=== PATIENT | female | born 1970 | race Hispanic/Latino ===

== ENCOUNTER 2021-09-30 17:34 | Inpatient (IN) | payer MEDICARE, OTHER ==
[2021-09-30 20:51] LABS: Basophils # (Auto) 0.1 K/mm3 (0.0-0.1); Eosinophils # (Auto) 0.3 K/mm3 (0.0-0.4); Eosinophils % (Auto) 3.4 % (0.0-4.3); Hematocrit 36.2 % (30.3-42.9); Hemoglobin 11.9 gm/dl (10.1-14.3); Lymphocytes # (Auto) 1.2 K/mm3 (1.2-5.4); Lymphocytes % (Auto) 12.2 % (13.4-35.0); Mean Corpuscular HGB Conc 33 % (30-34); Mean Corpuscular Volume 98 fl (79-97); Monocytes # (Auto) 0.7 K/mm3 (0.0-0.8); Monocytes % (Auto) 7.1 % (0.0-7.3); Platelet Count 342 K/mm3 (140-440); Red Blood Count 3.69 M/mm3 (3.65-5.03); Red Cell Distribution Width 16.3 % (13.2-15.2)
[2021-09-30 21:13] LABS: Albumin 4.2 g/dL (3.9-5); Blood Urea Nitrogen 69 mg/dL (7-17); Calcium 10.2 mg/dL (8.4-10.2); Hemolysis Index 6
[2021-09-30 21:34] LABS: Alanine Aminotransferase < 5 units/L (7-56); BUN/Creatinine Ratio 4
[2021-09-30] MEDS ORDERED: INSULIN REGULAR, HUMAN 100 UNITS/1 ML IV ONE (22:15)
[2021-09-30] MEDS ORDERED: SODIUM BICARB 8.4% 50 MEQ/50 ML SYRINGE IV ONE (22:15)
[2021-09-30] MEDS ORDERED: CALCIUM GLUCONATE 1,000 MG in SODIUM CHLORIDE 0.9% 100 ML IV ONE (22:15)
[2021-09-30] MEDS ORDERED: DEXTROSE 50% IN WATER (25GM) 50 ML SYRINGE IV ONE (22:15)
[2021-09-30] MEDS ORDERED: ALBUTEROL 2.5 MG/3 ML NEBU IH ONE (22:16)
[2021-09-30] MEDS ORDERED: cloNIDine 0.2 MG TAB PO ONE (22:23)
[2021-09-30] MEDS ORDERED: ONDANSETRON 4 MG/2 ML INJ IV ONE (22:25)
--- NOTE | 2021-09-30 22:27 | Emergency Department Report ---
HPI - General Chief Complaint: Weakness Time Seen by Provider: 09/30/21 22:15 - HPI HPI: Room 1 Patient is a 51-year-old female present with a chief complaint of missed dialysis. The patient states she was last dialyzed 09/26/2021. Patient states she had left town to visit in [place] where she says she had a prearranged hemodialysis. The patient states when she went there for dialysis he was told that they were understaffed and they were unable to perform hemodialysis. Patient states yesterday she developed weakness, shortness of breath nausea vomiting. The patient returns to [place] this morning and now presents to the ED. The patient states her command and control specialist is a Dr. Randolph at [facility] Past Medical Hx - Past Medical History Hx Hypertension: Yes Hx Renal Disease: Yes (ESRD) Hx Headaches / Migraines: Yes - Surgical History Additional Surgical History: Left upper extremity fistula - Family History Family history: no significant - Social History Smoking Status: Never Smoker Substance Use Type: None (Denies illicit drug use) - Medications Home Medications: Home Medications Medication Instructions Recorded Confirmed Last Taken Type Amlodipine Besylate 10 mg PO DAILY 09/27/15 09/27/15 Unknown History Atorvastatin 10 mg PO QHS 09/27/15 09/27/15 Unknown History Ergocalciferol [Vitamin D2] 50,000 units PO QWEEK 09/27/15 09/27/15 Unknown History Metoprolol Tartrate 25 mg PO BID 09/27/15 09/27/15 Unknown History Spironolactone 25 mg PO BID 09/27/15 09/27/15 Unknown History Tramadol HCl 50 mg PO Q8HR PRN 09/27/15 09/27/15 Unknown History ED Review of Systems ROS: Stated complaint: DIALYSIS PT MISSED TREATMENT Other details as noted in HPI Constitutional: weakness Eyes: denies: eye pain ENT: denies: throat pain Respiratory: shortness of breath Cardiovascular: denies: chest pain Endocrine: no symptoms reported Gastrointestinal: nausea, vomiting. denies: abdominal pain Genitourinary: denies: abnormal menses Musculoskeletal: denies: back pain Neurological: denies: headache Physical Exam - Physical Exam Vital Signs: Vital Signs 09/30/21 20:18 Temperature 98.5 F Pulse Rate 92 H Respiratory 18 Rate Blood Pressure 197/118 [Right] O2 Sat by Pulse 100 Oximetry Physical Exam: GENERAL: The patient is well-developed well-nourished female lying on stretcher not appearing to be in acute distress. [] HEENT: Normocephalic. Atraumatic. Extraocular motions are intact. Patient has moist mucous membranes. NECK: Supple. Trachea midline CHEST/LUNGS: Clear to auscultation. There is no respiratory distress noted. HEART/CARDIOVASCULAR: Regular. There is no tachycardia. There is no gallop rub or murmur. ABDOMEN: Abdomen is soft, nontender. Patient has normal bowel sounds. There is no abdominal distention. SKIN: There is no rash. There is no edema. There is no diaphoresis. NEURO: The patient is awake, alert, and oriented. The patient is cooperative. The patient has no focal neurologic deficits. The patient has normal speech. GCS 15 MUSCULOSKELETAL: There is no evidence of acute injury. ED Course Vital Signs 09/30/21 20:18 Temperature 98.5 F Pulse Rate 92 H Respiratory 18 Rate Blood Pressure 197/118 [Right] O2 Sat by Pulse 100 Oximetry - Consultations Consultation #1: 09/30/21 22:26 Nephrology paged 09/30/21 22:[address] Sibley- will arrange for stat hemodialysis ED Medical Decision Making - Lab Data Result diagrams: 09/30/21 20:38 09/30/21 20:38 - EKG Data -: EKG Interpreted by Me EKG shows normal: sinus rhythm Rate: normal - EKG Data When compared to previous EKG there are: previous EKG unavailable Interpretation: nonspecific ST-T wave milad (Peaked T waves) - Radiology Data Radiology results: report reviewed (Chest x-ray), image reviewed (Chest x-ray) interpreted by me: Chest x-ray-no definite focal infiltrates, no pneumothorax, no edema [facility] [address] [place] [address] XRay Report Signed Patient: MIS LAWRENCE MR#: [id number] : 1970 Acct:[id number] Age/Sex: 51 / F ADM Date: 09/30/21 Loc: ED Attending Dr: Ordering Physician: NUNO LOVETT MD Date of Service: 09/30/21 Procedure(s): XR chest 1V ap Accession Number(s): [id number] cc: NUNO LOVETT MD Fluoro Time In Minutes: CHEST 1 VIEW INDICATION / CLINICAL INFORMATION: Missed dialysis, shortness of breath. COMPARISON: None available. FINDINGS: Heart size appears within normal limits. Mediastinal contour demonstrates no significant abnormality. Pulmonary vasculature appears within normal limits. Lungs are clear. Bones and soft tissues demonstrate no significant abnormalities. IMPRESSION: 1. No active cardiopulmonary disease. Signer Name: Kirti Napier II, MD Signed: 09/30/2021 10:49 PM Workstation Name: [id number] Transcribed By: SHEREE Dictated By: KIRTI NAPIER II, MD Electronically Authenticated By: KIRTI NAPIER II, MD Signed Date/Time: 09/30/212248 DD/ 48 - Differential Diagnosis Hyperkalemia, volume overload Critical care attestation.: If time is entered above; I have spent that time in minutes in the direct care of this critically ill patient, excluding procedure time. ED Disposition Clinical Impression: Hyperkalemia, ESRD needing dialysis, Uncontrolled hypertension Disposition: ADMITTED INPATIENT Is pt being admited?: Yes Does the pt Need Aspirin: No Condition: Serious Instructions: Hypertension (ED) Time of Disposition: 22:38 (Care transferred to hospitalist (Dr Mariscal))
--- NOTE | 2021-09-30 22:54 | XRay Report ---
CHEST 1 VIEW INDICATION / CLINICAL INFORMATION: Missed dialysis, shortness of breath. COMPARISON: None available. FINDINGS: Heart size appears within normal limits. Mediastinal contour demonstrates no significant abnormality. Pulmonary vasculature appears within normal limits. Lungs are clear. Bones and soft tissues demonstr ate no significant abnormalities. IMPRESSION: 1. No active cardiopulmonary disease. Signer Name: Taiwo James II, MD Signed: 09/30/2021 10:49 PM Workstation Name: [id number]
[2021-09-30] MEDS ORDERED: ACETAMINOPHEN 325 MG TAB PO PRN (22:55)
[2021-09-30] MEDS ORDERED: ONDANSETRON 4 MG/2 ML INJ IV PRN (22:55)
[2021-09-30] MEDS ORDERED: MORPHINE 4 MG/1 ML INJ IV PRN (22:55)
[2021-09-30] MEDS ORDERED: MAGNESIUM HYDROXIDE (MOM) ORAL LIQD UDC PO PRN (22:55)
--- NOTE | 2021-09-30 23:03 | History and Physical Report ---
History of Present Illness Date of examination: 09/30/21 Date of admission: 09/30/2021 Chief complaint: ESRD - needing dialysis History of present illness: 51-year-old -Kosovan female with known history of end-stage renal disease on dialysisMondays, Wednesdays and Fridays presents to the emergency room today requesting for dialysis. Patient was last dialyzed on 09/26/2021. She was out of town to [place] and she had had a prearranged hemodialysis in [facility] however dialysis could not be performed because the facility was understaffed. She complains of shortness of breath but denies any chest pain. She has had some mild weakness but denies any fever or chills. She denies any headache or dizziness and denies any diaphoresis. Patient follows up with a machine operator transplanter Dr. Ana Calderon. Blood pressure was quite elevated upon arrival. Work-up in the emergency room today, labs were significant for potassium of 7.9. BUN of 69 and creatinine of 16.2. Chest x-ray was unremarkable. Patient has been given insulin and glucose, Kayexalate, calcium gluconate and sodium bicarb in the ER. [facility] on-call has been notified. She will be scheduled for immediate dialysis. Past History Past Medical History: dialysis, ESRD, hypertension, migraines Past Surgical History: Other (Left upper extremity fistula) Social history: no significant social history Family history: no significant family history Medications and Allergies Allergies Allergy/AdvReac Type Severity Reaction Status Date / Time No Known Allergies Allergy Verified 09/30/21 23:03 Home Medications Medication Instructions Recorded Confirmed Last Taken Type Amlodipine Besylate 10 mg PO DAILY 09/27/15 09/27/15 Unknown History Atorvastatin 10 mg PO QHS 09/27/15 09/27/15 Unknown History Ergocalciferol [Vitamin D2] 50,000 units PO QWEEK 09/27/15 09/27/15 Unknown History Metoprolol Tartrate 25 mg PO BID 09/27/15 09/27/15 Unknown History Spironolactone 25 mg PO BID 09/27/15 09/27/15 Unknown History Tramadol HCl 50 mg PO Q8HR PRN 09/27/15 09/27/15 Unknown History Active Meds: Active Medications Acetaminophen (Acetaminophen 325 Mg Tab) 650 mg PO Q4H PRN PRN Reason: Pain MILD(1-3)/Fever >100.5/ISABEL Magnesium Hydroxide (Magnesium Hydroxide (Mom) Oral Liqd Udc) 30 ml PO Q4H PRN PRN Reason: Constipation Morphine Sulfate (Morphine 2 Mg/1 Ml Inj) 2 mg IV Q4H PRN PRN Reason: Pain, Moderate (4-6) Morphine Sulfate (Morphine 4 Mg/1 Ml Inj) 4 mg IV Q4H PRN PRN Reason: Pain , Severe (7-10) Ondansetron HCl (Ondansetron 4 Mg/2 Ml Inj) 4 mg IV Q8H PRN PRN Reason: Nausea And Vomiting Sodium Chloride (Sodium Chloride 0.9% 10 Ml Flush Syringe) 10 ml IV BID KORY Sodium Chloride (Sodium Chloride 0.9% 10 Ml Flush Syringe) 10 ml IV PRN PRN PRN Reason: LINE FLUSH Review of Systems Constitutional: no fever, no chills Ears, nose, mouth and throat: no nasal congestion, no sore throat Cardiovascular: no chest pain, no palpitations Respiratory: shortness of breath, no cough Gastrointestinal: no abdominal pain, no nausea, no vomiting, no diarrhea Genitourinary Female: no pelvic pain, no flank pain, no dysuria Musculoskeletal: no neck pain, no low back pain Integumentary: no rash, no pruritis Neurological: no headaches, no confusion Psychiatric: no anxiety, no depression Endocrine: no polyphagia, no polydipsia, no polyuria, no nocturia Exam - Constitutional Vitals: Temp Pulse Resp BP Pulse Ox 98.5 F 94 H 17 190/119 100 09/30/21 20:18 09/30/21 22:41 09/30/21 22:41 09/30/21 22:39 09/30/21 20:18 General appearance: Present: no acute distress, well-nourished - EENT Eyes: Present: PERRL, EOM intact. Absent: scleral icterus ENT: hearing intact, clear oral mucosa, dentition normal - Neck Neck: Present: supple, normal ROM - Respiratory Respiratory effort: normal Respiratory: bilateral: CTA - Cardiovascular Rhythm: regular Heart Sounds: Present: S1 & S2. Absent: gallop, systolic murmur, diastolic murmur, rub, click - Extremities Extremities: no ischemia, pulses intact, pulses symmetrical, No edema, normal temperature, normal color, Full ROM Peripheral Pulses: within normal limits - Abdominal General gastrointestinal: Present: soft, non-tender, non-distended, normal bowel sounds. Absent: mass - Integumentary Integumentary: Present: clear, warm, dry, normal turgor. Absent: rash - Musculoskeletal Musculoskeletal: strength equal bilaterally - Psychiatric Psychiatric: appropriate mood/affect, intact judgment & insight, memory intact, cooperative - Neurologic Neurologic: CNII-XII intact, no focal deficits, moves all extremities Results - Labs CBC & Chem 7: 09/30/21 20:38 09/30/21 20:38 Labs: Abnormal lab results 09/30/21 09/30/21 Range/Units 20:38 20:38 MCV 98 H (79-97) fl RDW 16.3 H (13.2-15.2) % Lymph % (Auto) 12.2 L (13.4-35.0) % Seg Neutrophils % 76.3 H (40.0-70.0) % Potassium 7.9 H* (3.6-5.0) mmol/L Chloride 97.7 L (98-107) mmol/L Carbon Dioxide 19 L (22-30) mmol/L BUN 69 H (7-17) mg/dL Creatinine 16.2 H (0.6-1.2) mg/dL ALT < 5 L (7-56) units/L Assessment and Plan - Patient Problems (1) ESRD needing dialysis Status: Acute Plan to address problem: Patient gets dialysis on Mondays, Wednesdays and Fridays. She was last dialyzed on 09/26/2021. [facility] has been consulted and patient will be scheduled for immediate dialysis. (2) Hyperkalemia Status: Acute Plan to address problem: Patient has had insulin and glucose, albuterol, calcium gluconate, sodium bicarb She is also scheduled for immediate dialysis. Will monitor potassium levels and also monitor EKG. (3) Uncontrolled hypertension Status: Acute Plan to address problem: Patient has been given clonidine p.o. We will resume routine home medications. Will monitor blood pressure closely. (4) DVT prophylaxis Status: Acute Plan to address problem: Patient placed on subcutaneous heparin. (5) Full code status Status: Acute Plan to address problem: Patient is full code.
[2021-09-30] MEDS ORDERED: SODIUM CHLORIDE 0.9% 100 ML IV PRN (23:08)
[2021-10-01 00:30] LABS: Hepatitis B Surface Antigen Non-Reactive (Negative); Hepatitis C Virus Antibody Non-Reactive (NonReactive)
[2021-10-01] MEDS: hydrALAZINE 20 MG/1 ML INJ IV PRN ×2 (00:57→05:23)
[2021-10-01] MEDS: MORPHINE 2 MG/1 ML INJ IV PRN ×2 (02:48→20:34)
[2021-10-01] MEDS: HEPARIN 5,000 UNIT/1 ML VIAL SUB-Q SCH ×3 (05:24→21:58)
--- NOTE | 2021-10-01 08:16 | Progress Note ---
Assessment and Plan Assessment and plan: History of present illness: 51-year-old -Surinamese female with known history of end-stage renal disease on dialysisMondays, Wednesdays and Fridays presents to the emergency room today requesting for dialysis. Patient was last dialyzed on 09/26/2021. She was out of town to [place] and she had had a prearranged hemodialysis in [place] however dialysis could not be performed because the facility was understaffed. She complains of shortness of breath but denies any chest pain. She has had some mild weakness but denies any fever or chills. She denies any headache or dizziness and denies any diaphoresis. Patient follows up with a assurance associate Dr. Randolphat [place]. Blood pressure was quite elevated upon arrival. Work-up in the emergency room today, labs were significant for potassium of 7.9. BUN of 69 and creatinine of 16.2. Chest x-ray was unremarkable. Patient has been given insulin and glucose, Kayexalate, calcium gluconate and sodium bicarb in the ER. Helicopter Pilot on-call has been notified. She will be scheduled for immediate dialysis. Hospital Course: 10/01: Status post 1 treatment hemodialysis. Potassium improved to 5.4. Nephrology plan for additional hemodialysis treatment this afternoon. Anticipate discharge tomorrow. Discontinued spironolactone due to concern for worsening of hyperkalemia. Added hydralazine 100 mg p.o. 3 times daily. Assessment and Plan: #ESRD in need of hemodialysis -M/W/F dialysis, follows with nephrology Dr. Randolph at [place] -Left upper extremity fistula -Missed HD while traveling in [place] Nephrology Dr. Light consulted by ER physician for dialysis #Hyperkalemia -Potassium 7.9 on admission Hyperkalemia cocktail administered Correct with hemodialysis Monitor for resolution on BMP #Hypertensive emergency -190/119, resume home medications: Amlodipine, metoprolol -initiated on hydralazine 100 po tid Hydralazine and labetalol IV as needed Hold home spironolactone due to hyperkalemia #Hyperlipidemia -Resume home statin #Essential hypertension -Antihypertensive medication as above #History of migraines #Advance care planning Disease education conducted, care plan discussed, diagnoses discussed, prognosis discussed, patient is full code, patient acknowledges understanding and agree with care plan, discussed with mother Randee Moreno about patient clinical course and answered all questionst to satisfaction. +30 minutes. History Interval history: Patient has no acute complaints on bedside encounter. She states that she is compliant with her hemodialysis. She denied any headache, nausea, vomiting, chest pain, shortness of breath. Hospitalist Physical - Physical exam Narrative exam: Physical Exam: VITAL SIGNS: Reviewed. GENERAL: The patient appears normally developed, Vital signs as documented. HEAD: No signs of head trauma. EYES: Pupils are equal. Extraocular motions intact. EARS: Hearing grossly intact. MOUTH: Oropharynx is normal. NECK: No adenopathy, no JVD. CHEST: Chest with clear breath sounds bilaterally. No wheezes, rales, or rhonchi. CARDIAC: Regular rate and rhythm. S1 and S2, without murmurs, gallops, or rubs. VASCULAR: Left upper extremity fistula. No Edema. Peripheral pulses normal and equal in all extremities. ABDOMEN: Soft, non tender and non distended. No rebound or guarding, and no masses palpated. Bowel Sounds normal. MUSCULOSKELETAL: Good range of motion of all major joints. Extremities without clubbing, cyanosis or edema. NEUROLOGIC EXAM: Alert and oriented x 4. no focal sensory or strength deficits. PSYCHIATRIC: Mood normal. SKIN: detail exam as documented in skin assessment - Constitutional Vitals: Temp Pulse Resp BP Pulse Ox 98.0 F 83 20 168/102 99 10/01/21 05:14 10/01/21 05:23 10/01/21 05:14 10/01/21 05:23 10/01/21 05:14 General appearance: Present: no acute distress, well-nourished Results - Labs CBC & Chem 7: 10/01/21 07:57 10/01/21 07:57 Labs: Laboratory Last Values WBC 9.7 K/mm3 (4.5-11.0) 09/30/21 20:38 RBC 3.69 M/mm3 (3.65-5.03) 09/30/21 20:38 Hgb 11.9 gm/dl (10.1-14.3) 09/30/21 20:38 Hct 36.2 % (30.3-42.9) 09/30/21 20:38 MCV 98 fl (79-97) H 09/30/21 20:38 MCH 32 pg (28-32) 09/30/21 20:38 MCHC 33 % (30-34) 09/30/21 20:38 RDW 16.3 % (13.2-15.2) H 09/30/21 20:38 Plt Count 342 K/mm3 (140-440) 09/30/21 20:38 Lymph % (Auto) 12.2 % (13.4-35.0) L 09/30/21 20:38 Zavala % (Auto) 7.1 % (0.0-7.3) 09/30/21 20:38 Eos % (Auto) 3.4 % (0.0-4.3) 09/30/21 20:38 Baso % (Auto) 1.0 % (0.0-1.8) 09/30/21 20:38 Lymph # (Auto) 1.2 K/mm3 (1.2-5.4) 09/30/21 20:38 Zavala # (Auto) 0.7 K/mm3 (0.0-0.8) 09/30/21 20:38 Eos # (Auto) 0.3 K/mm3 (0.0-0.4) 09/30/21 20:38 Baso # (Auto) 0.1 K/mm3 (0.0-0.1) 09/30/21 20:38 Seg Neutrophils % 76.3 % (40.0-70.0) H 09/30/21 20:38 Seg Neutrophils # 7.4 K/mm3 (1.8-7.7) 09/30/21 20:38 Sodium 138 mmol/L (137-145) 09/30/21 20:38 Potassium 7.9 mmol/L (3.6-5.0) H* 09/30/21 20:38 Chloride 97.7 mmol/L (98-107) L 09/30/21 20:38 Carbon Dioxide 19 mmol/L (22-30) L 09/30/21 20:38 Anion Gap 29 mmol/L 09/30/21 20:38 BUN 69 mg/dL (7-17) H 09/30/21 20:38 Creatinine 16.2 mg/dL (0.6-1.2) H 09/30/21 20:38 Estimated GFR 2 ml/min 09/30/21 20:38 BUN/Creatinine Ratio 4 % 09/30/21 20:38 Glucose 94 mg/dL (65-100) 09/30/21 20:38 Calcium 10.2 mg/dL (8.4-10.2) 09/30/21 20:38 Total Bilirubin 0.40 mg/dL (0.1-1.2) 09/30/21 20:38 AST 7 units/L (5-40) 09/30/21 20:38 ALT < 5 units/L (7-56) L 09/30/21 20:38 Alkaline Phosphatase 58 units/L (35-129) 09/30/21 20:38 Total Protein 7.0 g/dL (6.3-8.2) 09/30/21 20:38 Albumin 4.2 g/dL (3.9-5) 09/30/21 20:38 Albumin/Globulin Ratio 1.5 % 09/30/21 20:38 Hep Bs Antigen Non-reactive (Negative) 09/30/21 23:15 Hep B Core IgM Ab Non-reactive (NonReactive) 09/30/21 23:15 Hepatitis C Antibody Non-reactive (NonReactive) 09/30/21 23:15 [place]queda/IV: Voiding Method Toilet Active Medications - Current Medications Current Medications: Generic Name Dose Route Start Last Admin Trade Name Freq PRN Reason Stop Dose Admin Acetaminophen 650 mg 09/30/21 22:55 Acetaminophen 325 Mg Tab PO Q4H PRN Pain MILD(1-3)/Fever >100.5/ISABEL Amlodipine Besylate 10 mg 10/01/21 10:00 Amlodipine 10 Mg Tab PO DAILY [facility] Atorvastatin Calcium 10 mg 10/01/21 22:00 Atorvastatin 10 Mg Tab PO QHS [facility] Heparin Sodium (Porcine) 5,000 unit 10/01/21 06:00 10/01/21 05:24 Heparin 5,000 Unit/1 Ml Vial SUB-Q 5,000 unit Q8HR KORY Administration Hydralazine HCl 10 mg 10/01/21 00:37 10/01/21 05:23 Hydralazine 20 Mg/1 Ml Inj IV 10 mg Q4HR PRN Administration Blood Pressure Sodium Chloride 100 mls @ 999 mls/hr 09/30/21 23:08 Nacl 0.9% IV TONIE PRN Hypotension Magnesium Hydroxide 30 ml 09/30/21 22:55 Magnesium Hydroxide (Mom) Oral Liqd Udc PO Q4H PRN Constipation Metoprolol Tartrate 25 mg 10/01/21 10:00 Metoprolol Tartrate 25 Mg Tab PO BID KORY Morphine Sulfate 2 mg 09/30/21 22:55 10/01/21 02:48 Morphine 2 Mg/1 Ml Inj IV 2 mg Q4H PRN Administration Pain, Moderate (4-6) Morphine Sulfate 4 mg 09/30/21 22:55 Morphine 4 Mg/1 Ml Inj IV Q4H PRN Pain , Severe (7-10) Ondansetron HCl 4 mg 09/30/21 22:55 Ondansetron 4 Mg/2 Ml Inj IV Q8H PRN Nausea And Vomiting Sodium Chloride 10 ml 10/01/21 10:00 Sodium Chloride 0.9% 10 Ml Flush Syringe IV BID KORY Sodium Chloride 10 ml 09/30/21 22:55 Sodium Chloride 0.9% 10 Ml Flush Syringe IV PRN PRN LINE FLUSH
[2021-10-01 08:46] LABS: Basophils # (Auto) 0.1 K/mm3 (0.0-0.1); Basophils % (Auto) 0.6 % (0.0-1.8); Eosinophils # (Auto) 0.2 K/mm3 (0.0-0.4); Eosinophils % (Auto) 2.7 % (0.0-4.3); Hemoglobin 11.6 gm/dl (10.1-14.3); Lymphocytes # (Auto) 2.3 K/mm3 (1.2-5.4); Lymphocytes % (Auto) 27.2 % (13.4-35.0); Mean Corpuscular HGB Conc 33 % (30-34); Mean Corpuscular Volume 97 fl (79-97); Monocytes # (Auto) 0.9 K/mm3 (0.0-0.8); Monocytes % (Auto) 10.3 % (0.0-7.3); Platelet Count 329 K/mm3 (140-440); Red Blood Count 3.61 M/mm3 (3.65-5.03); Red Cell Distribution Width 16.8 % (13.2-15.2)
[2021-10-01 09:03] LABS: Calcium 9.5 mg/dL (8.4-10.2)
[2021-10-01] MEDS: hydrALAZINE 100 MG TAB PO SCH ×3 (09:25→20:34)
[2021-10-01] MEDS: amLODIPine 10 MG TAB PO SCH (09:26)
[2021-10-01] MEDS: METOPROLOL TARTRATE 25 MG TAB PO SCH ×2 (09:33→21:58)
[2021-10-01] MEDS ORDERED: SPIRONOLACTONE 25 MG TAB PO SCH (10:00)
--- NOTE | 2021-10-01 10:11 | Consultation ---
History of Present Illness - Reason for Consult Consult date: 10/01/21 end stage renal disease, hyperkalemia Requesting physician: ROSALEE CHRISTIANSEN - History of Present Illness This is a 51 yo F with past medical history of Hypertension, ESRD on HD, usually being dialyzed at [facility] under the care of Dr Castro, who was out of town visiting [place] last week, however her dialysis treatments were not arranged and she missed her treatments. Last HD was on 09/26/21. Pt presents to ER with complains of shortness of breath. Labs in ER showed severe hyperkalemia of 7.9 along with elevated BUN/Cr at 69/16.2mg/dl. CXR was unremarkable. Patient was treated medically with insulin and glucose, Kayexalate, calcium gluconate and sodium bicarb in the ER. Nephrology consult was requested for emergent HD for correction of hyperkalemia Past History Past Medical History: dialysis, ESRD, hypertension, migraines Past Surgical History: Other (Left upper extremity fistula) Social history: no significant social history Family history: no significant family history Medications and Allergies Allergies Allergy/AdvReac Type Severity Reaction Status Date / Time No Known Allergies Allergy Verified 09/30/21 23:03 Home Medications Medication Instructions Recorded Confirmed Last Taken Type Amlodipine Besylate 10 mg PO DAILY 09/27/15 10/01/21 09/29/21 20:00 History Atorvastatin 10 mg PO QHS 09/27/15 10/01/21 09/29/21 20:00 History Ergocalciferol [Vitamin D2] 50,000 units PO QWEEK 09/27/15 10/01/21 09/29/21 20:00 History Metoprolol Tartrate 25 mg PO BID 09/27/15 10/01/21 09/29/21 20:00 History Spironolactone 25 mg PO BID 09/27/15 10/01/21 09/29/21 22:00 History Tramadol HCl 50 mg PO Q8HR PRN 09/27/15 10/01/21 09/29/21 21:00 History Active Meds: Active Medications Acetaminophen (Acetaminophen 325 Mg Tab) 650 mg PO Q4H PRN PRN Reason: Pain MILD(1-3)/Fever >100.5/ISABEL Amlodipine Besylate (Amlodipine 10 Mg Tab) 10 mg PO DAILY KORY Last Admin: 10/01/21 09:26 Dose: 10 mg Atorvastatin Calcium (Atorvastatin 10 Mg Tab) 10 mg PO QHS [facility] Heparin Sodium (Porcine) (Heparin 5,000 Unit/1 Ml Vial) 5,000 unit SUB-Q Q8HR [facility] Last Admin: 10/01/21 05:24 Dose: 5,000 unit Hydralazine HCl (Hydralazine 20 Mg/1 Ml Inj) 10 mg IV Q4HR PRN PRN Reason: SBP >160 Last Admin: 10/01/21 05:23 Dose: 10 mg Hydralazine HCl (Hydralazine 100 Mg Tab) 100 mg PO TID [facility] Last Admin: 10/01/21 09:25 Dose: 100 mg Sodium Chloride (Nacl 0.9%) 100 mls @ 999 mls/hr IV TONIE PRN PRN Reason: Hypotension Sodium Chloride (Nacl 0.9%) 100 mls @ 999 mls/hr IV TONIE PRN PRN Reason: Hypotension Labetalol HCl (Labetalol 20 Mg/4 Ml Inj) 10 mg IV Q4H PRN PRN Reason: sbp>160 Magnesium Hydroxide (Magnesium Hydroxide (Mom) Oral Liqd Udc) 30 ml PO Q4H PRN PRN Reason: Constipation Metoprolol Tartrate (Metoprolol Tartrate 25 Mg Tab) 25 mg PO BID [facility] Last Admin: 10/01/21 09:33 Dose: 25 mg Morphine Sulfate (Morphine 2 Mg/1 Ml Inj) 2 mg IV Q4H PRN PRN Reason: Pain, Moderate (4-6) Last Admin: 10/01/21 02:48 Dose: 2 mg Morphine Sulfate (Morphine 4 Mg/1 Ml Inj) 4 mg IV Q4H PRN PRN Reason: Pain , Severe (7-10) Ondansetron HCl (Ondansetron 4 Mg/2 Ml Inj) 4 mg IV Q8H PRN PRN Reason: Nausea And Vomiting Sodium Chloride (Sodium Chloride 0.9% 10 Ml Flush Syringe) 10 ml IV BID [facility] Sodium Chloride (Sodium Chloride 0.9% 10 Ml Flush Syringe) 10 ml IV PRN PRN PRN Reason: LINE FLUSH Review of Systems All systems: negative Constitutional: weakness, malaise Cardiovascular: shortness of breath Exam - Vital Signs Vital signs: Vital Signs Temp Pulse Resp BP Pulse Ox 98.5 F 92 H 18 197/118 100 05/01/22 20:18 09/30/21 20:18 09/30/21 20:18 09/30/21 20:18 09/30/21 20:18 - General Appearance General appearance: well-developed, well-nourished, appears stated age EENT: ATNC, PERRL, mucous membranes moist Neck: Present: neck supple Respiratory: Clear to Ascultation Heart: regular, S1S2 Gastrointestinal: Present: normoactive bowel sounds Integumentary: no rash, other (no edema ) Neurologic: no focal deficit, alert and oriented x3, strength 5/5, CN 3-12 intact Psychiatric: mood/affect appropriate, cooperative Results - Lab Results 10/01/21 07:57 10/01/21 07:57 Most recent lab results Calcium 9.5 mg/dL (8.4-10.2) 10/01/21 07:57 Assessment and Plan - Patient Problems (1) Hyperkalemia Current Visit: No Status: Acute Plan to address problem: K improved s/p medical treatment and emergent HD last night. Will resume patient outpatient HD schedule on MWF, using 2K bath to further correct hyperkalemia. cont 2g K renal diet (2) ESRD needing dialysis Current Visit: No Status: Acute Plan to address problem: s/p emergent HD last night for correction fo hyperkalemia. cont HD on MWF schedule (3) Hypertensive emergency Onset Date: 09/26/15 Current Visit: No Status: Acute Plan to address problem: monitor BP on current meds. Will target additional UF of 2L with HD for further volume/BP control (4) Metabolic acidosis Current Visit: Yes Status: Acute Plan to address problem: corrected with HD
[2021-10-01] MEDS ORDERED: SODIUM CHLORIDE 0.9% 100 ML IV PRN (10:30)
[2021-10-02] MEDS: MORPHINE 2 MG/1 ML INJ IV PRN (01:26)
[2021-10-02] MEDS: HEPARIN 5,000 UNIT/1 ML VIAL SUB-Q SCH (06:36)
[2021-10-02 07:59] LABS: Calcium 9.3 mg/dL (8.4-10.2)
[2021-10-02] MEDS ORDERED: cloNIDine 0.1 MG TAB PO SCH (10:00)
[2021-10-02] MEDS ORDERED: SODIUM POLYSTYRENE 15 GM/60 ML ORAL LIQD PO SCH (10:00)
--- NOTE | 2021-10-02 10:20 | Electrocardiograph Report ---
[facility] Test Date: 2021-10-01 Test Time: 07:39:52 Pat Name: MIS LAWRENCE Department: Room: A485 1 Gender: F Manufacturing Engineering Technician: SILVANO : 1970 Requested By: NUNO LOVETT Order Number: [id number] Reading MD: Cruzito Glez Measurements Intervals [place] Rate: 91 P: 51 MD: 141 QRS: 37 QRSD: 71 T: 88 QT: 398 QTc: 490 Interpretive Statements Sinus rhythm Probable left atrial enlargement Probable left ventricular hypertrophy No previous ECG available for comparison Electronically Signed On 10-02-2021 10:20:23 EDT by Cruzito Glez
--- NOTE | 2021-10-02 10:34 | Progress Note ---
Assessment and Plan - Patient Problems (1) Hyperkalemia Current Visit: Yes Status: Acute Plan to address problem: K improved with HD, but remains elevated, treat with Kayexalate 15g x 1 dose, cont 2g K renal diet. (2) ESRD (end stage renal disease) Current Visit: Yes Status: Acute Plan to address problem: Cont HD on MWF schedule (3) Hypertensive emergency Onset Date: 09/26/15 Current Visit: No Status: Acute Plan to address problem: monitor BP on current meds. Will target additional UF of 2L with HD for further volume/BP control (4) Metabolic acidosis Current Visit: Yes Status: Acute Plan to address problem: corrected with HD Subjective Date of service: 10/02/21 Principal diagnosis: ESRD Interval history: Pt awake, alert, in no acute distress, no overnight events reported Objective - Vital Signs Vital signs: Vital Signs - 12hr 10/01/21 10/02/21 10/02/21 23:45 02:00 03:42 Temperature 98.5 F 99.2 F Pulse Rate 64 86 65 Respiratory 18 16 18 Rate Blood Pressure 154/93 176/94 O2 Sat by Pulse 99 98 100 Oximetry 10/02/21 06:26 Temperature Pulse Rate Respiratory Rate Blood Pressure 143/83 O2 Sat by Pulse Oximetry - General Appearance General appearance: well-developed, well-nourished, appears stated age EENT: ATNC, PERRL, mucous membranes moist Neck: no JVD Respiratory: Present: Clear to Ascultation Cardiology: regular, S1S2 Gastrointestinal: normoactive bowel sounds Integumentary: no rash, other (no edema ) Neurologic: no focal deficit, alert and oriented x3, strength 5/5, CN 3-12 intact Psychiatric: mood/affect appropriate, cooperative - Lab 10/01/21 07:57 10/02/21 07:21 Most recent lab results Calcium 9.3 mg/dL (8.4-10.2) 10/02/21 07:21 Medications & Allergies - Medications Allergies/Adverse Reactions: Allergies No Known Allergies Allergy (Verified 09/30/21 23:03) Home Medications: Home Medications Medication Instructions Recorded Confirmed Last Taken Type Amlodipine Besylate 10 mg PO DAILY 09/27/15 10/01/21 09/29/21 20:00 History Atorvastatin 10 mg PO QHS 09/27/15 10/01/21 09/29/21 20:00 History Ergocalciferol [Vitamin D2] 50,000 units PO QWEEK 09/27/15 10/01/21 09/29/21 20:00 History Metoprolol Tartrate 25 mg PO BID 09/27/15 10/01/21 09/29/21 20:00 History Spironolactone 25 mg PO BID 09/27/15 10/01/21 09/29/21 22:00 History Tramadol HCl 50 mg PO Q8HR PRN 09/27/15 10/01/21 09/29/21 21:00 History Active Medications: Generic Name Dose Route Start Last Admin Trade Name Freq PRN Reason Stop Dose Admin Acetaminophen 650 mg 09/30/21 22:55 10/02/21 04:54 Acetaminophen 325 Mg Tab PO 650 mg Q4H PRN Administration Pain MILD(1-3)/Fever >100.5/ISABEL Amlodipine Besylate 10 mg 10/01/21 10:00 10/01/21 09:26 Amlodipine 10 Mg Tab PO 10 mg DAILY KORY Administration Atorvastatin Calcium 10 mg 10/01/21 22:00 10/01/21 21:58 Atorvastatin 10 Mg Tab PO 10 mg QHS KORY Administration Clonidine HCl 0.1 mg 10/02/21 10:00 Clonidine 0.1 Mg Tab PO Q12HR [facility] Heparin Sodium (Porcine) 5,000 unit 10/01/21 06:00 10/02/21 06:36 Heparin 5,000 Unit/1 Ml Vial SUB-Q 5,000 unit Q8HR KORY Administration Hydralazine HCl 100 mg 10/01/21 09:00 10/01/21 20:34 Hydralazine 100 Mg Tab PO 100 mg TID KORY Administration Sodium Chloride 100 mls @ 999 mls/hr 10/01/21 10:30 Nacl 0.9% IV TONIE PRN Hypotension Labetalol HCl 10 mg 10/01/21 09:00 10/02/21 04:41 Labetalol 20 Mg/4 Ml Inj IV 10 mg Q4H PRN Administration sbp>160 Magnesium Hydroxide 30 ml 09/30/21 22:55 Magnesium Hydroxide (Mom) Oral Liqd Udc PO Q4H PRN Constipation Metoprolol Tartrate 25 mg 10/01/21 10:00 10/01/21 21:58 Metoprolol Tartrate 25 Mg Tab PO 25 mg BID KORY Administration Morphine Sulfate 2 mg 09/30/21 22:55 10/02/21 01:26 Morphine 2 Mg/1 Ml Inj IV 2 mg Q4H PRN Administration Pain, Moderate (4-6) Morphine Sulfate 4 mg 09/30/21 22:55 Morphine 4 Mg/1 Ml Inj IV Q4H PRN Pain , Severe (7-10) Ondansetron HCl 4 mg 09/30/21 22:55 Ondansetron 4 Mg/2 Ml Inj IV Q8H PRN Nausea And Vomiting Sodium Chloride 10 ml 10/01/21 10:00 10/01/21 21:58 Sodium Chloride 0.9% 10 Ml Flush Syringe IV 10 ml BID KORY Administration Sodium Chloride 10 ml 09/30/21 22:55 Sodium Chloride 0.9% 10 Ml Flush Syringe IV PRN PRN LINE FLUSH Sodium Polystyrene Sulfonate 15 gm 10/02/21 10:00 Sodium Polystyrene 15 Gm/60 Ml Oral Liqd PO 10/02/21 14:00 ONCE@1000 [facility]
[2021-10-02] MEDS: METOPROLOL TARTRATE 25 MG TAB PO SCH (10:51)
[2021-10-02] MEDS: amLODIPine 10 MG TAB PO SCH (10:51)
[2021-10-02] MEDS: hydrALAZINE 100 MG TAB PO SCH (10:51)
--- NOTE | 2021-10-02 12:07 | Discharge Summary ---
Providers - Providers Date of Admission: 09/30/21 22:55 Date of discharge: 10/02/21 Attending physician: ROSALEE CHRISTIANSEN MD 09/30/21 22:35 Consult to Physician [CONS] Stat Comment: Consulting Provider: KALA CHAUDHARI Physician Instructions: Reason For Exam: Hyperkalemia, needs hemodialysis Primary care physician: RAMSES TERRAZAS Hospitalization Reason for admission: shortness of breath Condition: Serious Hospital course: History of present illness: 51-year-old -Congolese female with known history of end-stage renal disease on dialysisMondays, Wednesdays and Fridays presents to the emergency room today requesting for dialysis. Patient was last dialyzed on 09/26/2021. She was out of town to [place] and she had had a prearranged hemodialysis in [place] however dialysis could not be performed because the facility was understaffed. She complains of shortness of breath but denies any chest pain. She has had some mild weakness but denies any fever or chills. She denies any headache or dizziness and denies any diaphoresis. Patient follows up with a director of perioperative services Dr. Ana Calderon. Blood pressure was quite elevated upon arrival. Work-up in the emergency room today, labs were significant for potassium of 7.9. BUN of 69 and creatinine of 16.2. Chest x-ray was unremarkable. Patient has been given insulin and glucose, Kayexalate, calcium gluconate and sodium bicarb in the ER. Research Consultant on-call has been notified. She will be scheduled for immediate dialysis. Hospital Course: 10/01: Status post 1 treatment hemodialysis. Potassium improved to 5.4. Nephrology plan for additional hemodialysis treatment this afternoon. Anticipat e discharge tomorrow. Discontinued spironolactone due to concern for worsening of hyperkalemia. Added hydralazine 100 mg p.o. 3 times daily. 10/02: Potassium slight increase to 5.6 from 5.4 on AM labs. Administered Kayexylate x 1. D/w Dr. Dior, patient ok to discharge from nephrology standpoint. She has hemodialysis scheduled for tomorrow. Will rx hydralazine 100 mg po bid, metoprolol 25 mg po bid, amlodipine 10 mg po daily and clonadine 0.1 mg po bid. Advised to hold spironalactone until told to resume by PCP or director of perioperative services. Advised to follow up with OP director of perioperative services to discuss hospitalizat ion. She will likely need follow up renal panel in 5 days to check potassium. Assessment and Plan: #ESRD in need of hemodialysis -M/W/F dialysis, follows with nephrology Dr. Randolph at [place] -Left upper extremity fistula -Missed HD while traveling in [place] Nephrology Dr. Light consulted by ER physician for dialysis #Hyperkalemia -Potassium 7.9 on admission Hyperkalemia cocktail administered Correct with hemodialysis Monitor for resolution on BMP #Hypertensive emergency -190/119, resume home medications: Amlodipine, metoprolol -initiated on hydralazine 100 po tid Hydralazine and labetalol IV as needed Hold home spironolactone due to hyperkalemia #Hyperlipidemia -Resume home statin #Essential hypertension -Antihypertensive medication as above #History of migraines #Advance care planning Disease education conducted, care plan discussed, diagnoses discussed, prognosis discussed, patient is full code, patient acknowledges understanding and agree with care plan, discussed with mother Randee Moreno about patient clinical course and answered all questionst to satisfaction. +30 minutes. Disposition: HOME / SELF CARE / HOMELESS Final Discharge Diagnosis (Prints w/discharge instructions): hyperkalemia, esrd needing HD, hypertensive emergency Time spent for discharge: 35 Core Measure Documentation - Palliative Care Palliative Care/ Comfort Measures: Not Applicable - Core Measures Any of the following diagnoses?: none Exam - Physical Exam Narrative exam: Physical Exam: VITAL SIGNS: Reviewed. GENERAL: The patient appears normally developed, Vital signs as documented. HEAD: No signs of head trauma. EYES: Pupils are equal. Extraocular motions intact. EARS: Hearing grossly intact. MOUTH: Oropharynx is normal. NECK: No adenopathy, no JVD. CHEST: Chest with clear breath sounds bilaterally. No wheezes, rales, or rhonchi. CARDIAC: Regular rate and rhythm. S1 and S2, without murmurs, gallops, or rubs. VASCULAR: Left upper extremity fistula. No Edema. Peripheral pulses normal and equal in all extremities. ABDOMEN: Soft, non tender and non distended. No rebound or guarding, and no masses palpated. Bowel Sounds normal. MUSCULOSKELETAL: Good range of motion of all major joints. Extremities without clubbing, cyanosis or edema. NEUROLOGIC EXAM: Alert and oriented x 4. no focal sensory or strength deficits. PSYCHIATRIC: Mood normal. SKIN: detail exam as documented in skin assessment - Constitutional Vitals: Temp Pulse Resp BP Pulse Ox 98.5 F 72 18 126/71 96 10/02/21 11:25 10/02/21 11:25 10/02/21 11:25 10/02/21 11:25 10/02/21 11:25 Plan Plan of Treatment: Patiented was admitted to our facility due to missed dialysis treatment. Found to have hyperkalemia with K=7.9. Also blood pressure elevated to 194/107. Potassium addressed by hemodialysis which was initiated by in house nephrology, Dr. Dior. Blood pressure controlled with IV and oral anti-HTN. Spironalactone d/c as this could drive hyperkalemia. K=5.6 at the time of discharge. D/w Dr. Dior, patient ok to discharge from nephrology standpoint. She has hemodialysis scheduled for tomorrow in accordance to her // HD schedule. Will rx hydralazine 100 mg po bid, metoprolol 25 mg po bid, amlodipine 10 mg po daily and clonadine 0.1 mg po bid which have been transmitted to her pharmacy. Advised to hold spironalactone until told to resume by PCP or director of perioperative services. Advised to follow up with OP director of perioperative services to discuss hospitalization. She will likely need follow up renal panel in 5 days to check potassium. Follow up with: RAMSES TERRAZAS MD [Primary Care Provider] - 7 Days Prescriptions: amLODIPine 10 mg PO DAILY 30 Days #30 tablet hydrALAZINE [Apresoline TAB] 100 mg PO TID 30 Days #90 tab cloNIDine [Catapres] 0.1 mg PO Q12HR 30 Days #60 tablet Metoprolol [Lopressor TAB] 25 mg PO BID 30 Days #60 tablet
[2021-10-02 17:00] VITALS: BP 138/75
== END 2021-10-02 17:51 | disposition home or self-care (01) | DRG 640 ==
LOC: ED 17:34 → 4A 22:55
PROVIDERS: ADMIT Internal Medicine Geriatric Medicine; ATTEND Internal Medicine
PROC: 5A1D70Z Performance of Urinary Filtration, Intermittent, Less than 6 Hours Per Day (ICD-10-PCS; principal; 2021-10-01)
DX: E87.5 Hyperkalemia (principal); N18.6 End stage renal disease; I16.1 Hypertensive emergency; I12.0 Hypertensive chronic kidney disease with stage 5 chronic kidney disease or end stage renal disease; E87.2 Acidosis; G43.909 Migraine, unspecified, not intractable, without status migrainosus; Z99.2 Dependence on renal dialysis; E78.5 Hyperlipidemia, unspecified
CPT/HCPCS: 36415; 71045; 80048; 80053; 80074; 85025; 93005; 94644; 96374; G0378; J3490; Q9967; J0360; J0610; J1644; J1815; J2270; J2405